=== PATIENT | female | born 1955 | race Asian ===

== ENCOUNTER → 2018-10-29 18:24 | Outpatient (CLI) | payer OTHER, SELFPAY | PROVIDERS: Family Provider Family Medicine; PCP Family Medicine; Visit Provider Physician Assistant | DX: L08.9 Local infection of the skin and subcutaneous tissue, unspecified (principal) | CPT/HCPCS: 87070; 87075; 87077; 87147; 87186; 87205 ==

== ENCOUNTER → 2019-02-21 15:03 | Outpatient (CLI) | payer OTHER, SELFPAY ==
--- NOTE | 2019-02-21 16:09 | DIET.PN ---
Dietary Note DIABETES Nutrition Initial Assessment:? ASSESS:?? Mrs. Maza is a 63 yom with long standing hx of type 2 diabetes. She reports receiving formal diabetes education at [facility] ~10 yrs ago. Since then she has had bariatric surgery (sleeve) and has lost 75 lbs. During that time she had good glucose control and was able to discontinue diabetes medication. She admits her diet and physical activity have not been as strict as she has adjusted to her sleeve. Her weight loss has slowed down and she is back on diabetes medication. She travels 3 days/week for work which makes meal planning a little more challenging. She states she feels hungry 30 min- 1 hr after eating on most days. She is a heavy snacker in the evening before and sometimes after dinner. LABS: Per pt report:? A1c: 6.9 ? MEDS:?? metformin 500 mg BID, Glipizide 10 mg ? DIET: Per 24-hour recall:? mostly low carb B: egg white, spinach, mozz cheese bites (frozen from [employer]) L: leftovers; pre-made salad D: protein/veg stir-crouch; salads Snk: nuts, cheese, chips ? Weight: 215 Height: 64 BMJI: 36.9 Goal weight: 180-190 ? Exercise:? NUTRITION DX 1. Altered Nutrition related labs related to impaired glucose metabolism, lack of previous exposure to accurate nutrition information as evidenced by pt report, dx of diabetes, previous diet high in refined carbohydrates.? INTERVENTION(s): 1. Discussed pathophysiology of diabetes. Reviewed A1c and its correlation to blood glucose numbers. Discussed recommended BG ranges. 2. Discussed impact of nutrition/diet on blood sugar control.? Discussed fed versus non-fed state.?? 3. Discussed the effect of carbohydrates/protein/fat on blood sugar control.? Stressed importance of consistent carbohydrate intake at each meal and provided instructions for recommended servings/portions of carbohydrates/protein per meal. Provided pt with educational material. 4. Reviewed carbohydrate counting and measuring carbohydrate content via serving sizes and reading nutrition labels.? Provided handouts.?? 5. Discussed the difference between simple versus complex carbohydrates and the effect of fiber on blood sugar control.? Discussed various methods to increase fiber content in diet. 6. Stressed importance of meal timing and not going >4-5 hours between meals. Encouraged adding protein to each meal to support glucose control. Provided list of protein foods. Discussed best protein options for heart health and to alleviate hunger. Patient agreeable. 7. Discussed easy/on the go snack options to avoid overeating and/or unhealthy snacking while traveling. 9. Discussed healthy weight loss through diet and exercise to increase lean muscle mass.? Pt agreeable to walking or start going to the gym daily. Goals: 1. Pt would like to lose 25-30 lbs (goal weight 180-190) through changes in diet including meal prepping and keeping healthy snacks available and increasing physical activity. 2. Pt would like to get off of one or all diabetes medication by maintaining glucose control through portion control and balanced meals. MONITOR/EVALUATE: Anticipate good compliance.? F/u to discuss BG, weight, and food log
== END ==
PROVIDERS: PCP Nurse Practitioner Family; Visit Provider Nurse Practitioner Family
DX: E11.9 Type 2 diabetes mellitus without complications (principal); Z79.84 Long term (current) use of oral hypoglycemic drugs; E66.9 Obesity, unspecified; Z71.3 Dietary counseling and surveillance; Z98.84 Bariatric surgery status; Z68.36 Body mass index [BMI] 36.0-36.9, adult
CPT/HCPCS: 97802

== ENCOUNTER → 2020-06-21 07:57 | Outpatient (CLI) | payer OTHER, SELFPAY ==
[2020-06-21] MEDS: COVID-19 VACC #1, MRNA(MOD) 100 MCG/0.5 ML VIAL IM (08:07)
== END ==
PROVIDERS: PCP Nurse Practitioner Family; Visit Provider Internal Medicine
DX: Z23 Encounter for immunization (principal)
CPT/HCPCS: 0011A; 91301

== ENCOUNTER → 2020-07-19 07:52 | Outpatient (CLI) | payer OTHER, SELFPAY ==
[2020-07-19] MEDS: COVID-19 VACC #2, MRNA(MOD) 100 MCG/0.5 ML VIAL IM (07:58)
== END ==
PROVIDERS: PCP Nurse Practitioner Family; Visit Provider Internal Medicine
DX: Z23 Encounter for immunization (principal)
CPT/HCPCS: 0012A; 91301

== ENCOUNTER → 2021-03-12 15:35 | Outpatient (CLI) | payer OTHER, SELFPAY ==
--- NOTE | 2021-03-13 15:58 | DIAB.INIT ---
Initial Diabetes Education Assessment Name: Ale Maza Date: 03/12/21 Time: 340-515p Dx: Type II Diabetes c retinopathy , left eye Provider: Kennedy Barriers reported: cameron Aguilera presents for initial diabetes visit with her , Jake. Jake cooks most meals in the house. Endorses FH of DM with father (insulin dep, dialysis, eye and LE complications) and sister (insulin dep). Reports PMH of gatric sleeve sx 10 years ago. Has lost 10# intentionally in the last 6 months. Reports UBW of 200-210#. Bariatric goal was 170#. Also reports GDM with last 25 years ago. Reports loving foods, rice and noodles-- some Gi discomfort with noodles--, but she has been avoiding carbs to reduce BG. Currently on low dose of Metformin (500mg) + 15mg glipizide daily. States she was unable to tolerate higher dose of Metformin due to nausea. Taking Metformin XR. Could consider taking before bed with increased dose, if provider agrees. Maribell is also not sure if she was taking with food. Ale works from home.Getting new HgA1c this week. Has provider appt in 10 days. Physical Activity: Was attending gym but quit this past fall due to people not wearing masks and change in weather. States she would like to return. Self-Monitoring Blood Glucose: Using freestyle michael and loves it. Fear of needles reported. Per ADA guidelines, all FBG above goal. Pre lunch 3/3 elevated. Post lunch 2/4 elevated. one post dinner reported and in range. 3/6 elevated HS readings. Date Pre Post Pre Post Pre Post HS 03/06 169 243 135 128 12/3 133 134 209 12/4 164 164 198 165 12/5 151 140 145 12/6 161 149 /7 145 185 03/12 175 159 156 Diabetes Medications: 500 mg Metformin XR 15 mg glipizide daily Past Medical History: Per referral: childhood asthma, T2DM, tachycardia, heart murmur, afib, HDL, HTN, aortic sclerosis, osteoarthritis, JOHANNA c Cpap, colon polyp. Pertinent Labs: Per referral 08/2020 hgA1c: 7.4% H cholesterol 159 LDL 60 Intervention: This participant was very receptive. Provided appropriate educational handouts. Discussed the following topics: Completed intake assessment. Discussed barriers to care. Pathophysiology of type 2 diabetes HgA1c, its correlation to blood glucose numbers, and rationale for goal Types of medication. Recs on Metformin to reduce GI upset. self-monitoring, BG ADA goals (FB-130 and 1-2 hr pc: <180), how often, and when to check. Impact of cindy phenomenon on FBG. Plate Method, impact of macronutrients on blood sugar, meal timing, carbohydrate counting, pairing macronutrients and spreading out carbohydrates for better blood glucose management General recommended servings for carbohydrates at meals and snacks and meal planning Role of physical activity and following provider guidelines for safety Created SMART goals for patient self-care and success. Goals: Restart gym next week safely- new track food and blood sugar- new Ale would like to try tracking food intake and BG to see correlations. States she would also like to retry Metformin increased dose after discussing with provider. May benefit from taking the higher dose prior to bed to avoid nausea. Also encouraged taking with food. Follow-up: JOSE SALDANA follow-up in 2-3 weeks Samia Sheffield RDN, [facility] Certified Diabetes Care and Steerer P: [phone] Thank you for this referral
== END ==
PROVIDERS: PCP Nurse Practitioner Family; Referring Provider Nurse Practitioner Family; Visit Provider Nurse Practitioner Family
DX: E11.319 Type 2 diabetes mellitus with unspecified diabetic retinopathy without macular edema (principal); Z79.84 Long term (current) use of oral hypoglycemic drugs; Z71.3 Dietary counseling and surveillance
CPT/HCPCS: G0108

== ENCOUNTER → 2021-04-08 15:11 | Outpatient (CLI) | payer OTHER, SELFPAY ==
--- NOTE | 2021-04-08 16:19 | DIAB.FU ---
Follow-up Diabetes Education Assessment Name: Ale Maza Date: 04/08/21 Time: 335-405p Dx: Type II Diabetes Ale presents for Dm ed follow-up with her , Jake. States things overall are going very well. She is taking the higher Metformin XR dose before bed without SE. BG are much improved. States she is feeling satisfied with her meals. Jake does the cooking and plating for her meals. States he has been mindful of carb portions and reading labels. Saw provider and reports HgA1c of 7.7%, up from last visit but prior to increase in Metformin. Plans to see provider for new labs and DM f/u in three months. With current Bg it is anticipated that her HgA1c will hopefully trend <7%. Endorses being up to date on Dm care: dental and private eye, flu shot Does not check feet daily Physical Activity: Has not returned to the gym. She and Jake worry about the new covid variant and lack of masking at the gym. they have a rower at home and prior to the snowy weather, were trying to walk 30 min 3 x per week. Self-Monitoring Blood Glucose: Much improved BG mgmnt. FBG all in range. A few pc elevations related to higher carb intake. 1/6 elevated post breakfast, 1/5 elevated post dinner, 1/6 elevated HS reading. No hypo events. Date Pre Post Pre Post Pre Post HS 04/01 04/02 92 140 87 139 114 04/03 108 125 105 133 102 104 04/04 109 97 109 231 125 04/05 87 201 153 98 178 04/06 132 119 85 127 93 04/07 93 151 143 128 141 04/08 127 76 Diabetes Medications: 1000 mg Metformin XR 15 mg glipizide daily Pertinent Labs: Per referral 08/2020 hgA1c: 7.4% H cholesterol 159 LDL 60 Past Medical History: Per referral: childhood asthma, T2DM, tachycardia, heart murmur, afib, HDL, HTN, aortic sclerosis, osteoarthritis, JOHANNA c Cpap, colon polyp. Intervention: This participant was very receptive. Provided appropriate educational handouts. Discussed the following topics: Recent blood sugar results and trends Medication management Review of general nutrition recommendations and current intake Physical activity plan and impact on blood sugars, barriers to activity Prevention of complications: foot care (how and when to check feet), dental and eye appointments Created SMART goals for patient self-care and success. Goals: Restart gym next week safely- d/c track food and blood sugar- met Try rower safely- new restart walking when weather is safe x 30 min for 3-4 days per week- new Follow-up: JOSE SALDANA follow-up prn. Ale would like to call for follow-up as needed. Given improved BG mgmnt this seems reasonable. Encouraged her to call with any questions, concerns, or follow-up needs. She agreed. Samia Sheffield RDN, [facility] Certified Diabetes Care and Ginner Helper P: [phone] Thank you for this referral
== END ==
PROVIDERS: PCP Nurse Practitioner Family; Referring Provider Nurse Practitioner Family; Visit Provider Nurse Practitioner Family
DX: E11.9 Type 2 diabetes mellitus without complications (principal)
CPT/HCPCS: G0108

== ENCOUNTER 2022-08-21 09:19 | Emergency (ER) | payer MEDICARE, SELFPAY ==
[2022-08-21 09:39] VITALS: BP 130/80; PULSE 70; RESP 14; TEMP 36.2; O2SAT 99; BMI 30.9
--- NOTE | 2022-08-21 09:46 | DI.CT.S_ITS ---
PROCEDURE: CT CERVICAL SPINE WO CON INDICATIONS: trauma/fall on eliquis TECHNIQUE: Noncontrast 3 mm thick sections acquired from the skull base to the T4 level. Sagittal and coronal reformats were then constructed. For radiation dose reduction, the following was used: automated exposure control, adjustment of mA and/or kV according to patient size. COMPARISON: None. FINDINGS: Image quality: Excellent. Bones: No fractures or dislocations. Visualized superior ribs are intact. Multilevel facet arthropathy, prominent on the left C4-C5 and C5-C6. Soft tissues: Prevertebral soft tissues are normal in thickness. No paravertebral hematomas. No apical pneumothoraces. IMPRESSION: No evidence acute cervical fracture or dislocation. Dictated by: Ha Miller M.D. on 08/21/2022 at 9:59 Approved by: Ha Miller M.D. on 08/21/2022 at 10:02
--- NOTE | 2022-08-21 09:46 | DI.RAD.S_ITS ---
PROCEDURE: XR SHOULDER LT MIN 2V INDICATIONS: trauma/fall on eliquis TECHNIQUE: 3 views of the shoulder were acquired. COMPARISON: None. FINDINGS: Bones: No fractures or dislocations. No suspicious bony lesions. Mild acromioclavicular and glenohumeral joint degeneration. Visualized ribs appear intact. Soft tissues: Slight inferior subluxation of the humeral head may be caused by glenohumeral joint effusion. No suspicious soft tissue calcifications. IMPRESSION: 1. No acute osseous abnormalities. If clinical symptoms persist consider advanced imaging such as CT or MRI for further evaluation. 2. Mild degenerative joint disease. 3. Question glenohumeral joint effusion. Dictated by: Dave Bonilla M.D. on 08/21/2022 at 10:00 Approved by: Dave Bonilla M.D. on 08/21/2022 at 10:02
--- NOTE | 2022-08-21 09:46 | DI.CT.S_ITS ---
PROCEDURE: CT HEAD/BRAIN WO CON INDICATIONS: trauma/fall on eliquis TECHNIQUE: Noncontrast 4.5 mm thick angled axial sections acquired from the foramen magnum to the vertex, with coronal and sagittal reformats. For radiation dose reduction, the following was used: automated exposure control, adjustment of mA and/or kV according to patient size. COMPARISON: None. FINDINGS: Image quality: Excellent. CSF spaces: Basal cisterns are patent. No extra-axial fluid collections. The ventricles are symmetric in size and shape. Brain: No intracranial bleeds or masses. There is cerebral volume loss for age, with resultant ventricular and sulcal prominence. There are periventricular and deep white matter chronic small vessel ischemic changes. There is intracranial internal carotid artery atherosclerosis. Skull and face: Calvarium and visualized facial bones appear intact, without suspicious lesions. Mild left frontal temporal scalp contusion. Sinuses: Visualized sinuses and mastoids are clear. IMPRESSION: 1. No acute intracranial abnormalities. 2. Cerebral volume loss and chronic microvascular ischemic changes. Dictated by: Dave Bonilla M.D. on 08/21/2022 at 9:59 Approved by: Dave Bonilla M.D. on 08/21/2022 at 10:00
[2022-08-21 12:42] VITALS: BP 112/68; PULSE 58; O2SAT 99
--- NOTE | 2022-08-21 13:05 | ED_ITS ---
HPI - Fall <Brianna Valente PA-C - Last Filed: 08/21/22 14:04> General Chief Complaint: Trauma Stated Complaint: sent by [facility] fell T-4 hit head/headaches/Vision Time Seen by Provider: 08/21/22 13:05 Source: patient Mode of arrival: Ambulatory History of Present Illness HPI Narrative: Is a 67-year-old woman who presents with concern for headaches, light sensitivity and some blurred vision this morning. Patient had a fall about 3 days ago she [place] the [place] and [place] onto her left side hitting her left forehead/confucianist in her left shoulder upper arm when she landed on some beach locks. Patient states that she is been having light sensitivity and headaches since that time she does not typically have headaches but this morning when she woke up she felt like she had some blurry vision. She states she is also been having some muscle aching and tightness in her left shoulder and left upper back. She describes it as generalized blurriness that gradually resolved over the next few hours she says it is pretty much gone at way at this point. She initially went to the walk-in clinic but was sent to the emergency department for further evaluation. She denies any nausea, vomiting, neck pain, numbness or tingling in extremities, coordination difficulty or any other symptoms. Related Data Home Medications Medication Instructions Recorded Confirmed apixaban 5 mg tablet (Eliquis) 5 mg PO BID 10/29/18 10/29/18 atorvastatin 40 mg tablet 40 mg PO DAILY 10/29/18 10/29/18 chlorthalidone 25 mg tablet 25 mg PO DAILY 10/29/18 10/29/18 diltiazem HCl 180 mg capsule,24 180 mg PO DAILY 10/29/18 10/29/18 hr,extended release fluoxetine 20 mg capsule 40 mg PO DAILY 10/29/18 10/29/18 glipizide 10 mg tablet 10 mg PO BID 10/29/18 10/29/18 losartan 100 mg tablet 100 mg PO DAILY 10/29/18 10/29/18 metformin 500 mg tablet 500 mg PO DAILY 10/29/18 10/29/18 omeprazole 20 mg capsule,delayed 20 mg PO BID 10/29/18 10/29/18 release potassium chloride 10 mEq 20 meq PO DAILY 10/29/18 10/29/18 capsule,extended release Allergies Allergy/AdvReac Type Severity Reaction Status Date / Time cefaclor [From CECLOR] Allergy Severe hives Verified 08/21/22 09:46 MITCH Inhibitors Allergy Mild cough Verified 08/21/22 09:46 [MITCH INHIBITORS] Penicillins [PENICILLINS] Allergy Mild coughing Verified 08/21/22 09:46 zephrex Allergy Mild coughing Uncoded 10/29/18 17:41 Review of Systems <Brianna Valente PA-C - Last Filed: 08/21/22 14:04> Review of Systems Narrative: See HPI Patient History <Brianna Valente PA-C - Last Filed: 08/21/22 14:04> Social History Smoking Status: Never smoker Smoking Status: Never smoker alcohol intake frequency: 0-2 drinks per day Substance Use Type: does not use Exam <Brianna Valente PA-C - Last Filed: 08/21/22 14:04> Narrative Exam Narrative: GENERAL: [67] year old patient appears stated age. Well-developed patient, in mild distress. HEAD: There is purplish yellow bruising present on the patient's left lateral forehead anterior to the temporal, extending down to the left zygoma and with some bruising and slight swelling about the left eye at the lateral aspect. Otherwise Atraumatic. Normocephalic. EYES: EOMs intact, visual hand intact. Pupils equal round and reactive. Extraocular motions intact. No scleral icterus. No injection or drainage. ENT: Nose without bleeding, purulent drainage. Airway patent. NECK: Trachea midline. Non tender CARDIOVASCULAR: Regular rate and rhythm without murmurs, gallops, or rubs. RESPIRATORY: Clear to auscultation. Breath sounds equal bilaterally. No wheezes, rales, or rhonchi. GASTROINTESTINAL: Abdomen soft, non-tender, nondistended. EXTREMITIES: There is a large hematoma the patient's left upper humerus, patient has full active range of motion and intact strength in the affected left extremity, with strong equal radial pulses and cap refill less than 2 seconds.. No edema or joint tenderness. BACK: There is no midline spinous process tenderness deformity or step-off noted. Left trapezius muscle is tender and tight, left paraspinal thoracic muscles and cervical paraspinal muscles are tender and tight. Nontender without deformity or crepitance. No flank tenderness. NEURO: AOx3. Coordination intact SKIN: No rash or erythema of visible areas Initial Vital Signs Initial Vital Signs: Vital Signs Temperature 97.1 F L 08/21/22 09:39 Pulse Rate 70 08/21/22 09:39 Respiratory Rate 14 08/21/22 09:39 Blood Pressure 130/80 08/21/22 09:39 Pulse Oximetry 99 08/21/22 09:39 Oxygen Delivery Method Room Air 08/21/22 09:39 <Rashida Simon DO - Last Filed: 08/21/22 19:10> Initial Vital Signs Initial Vital Signs: Vital Signs Temperature 97.1 F L 08/21/22 09:39 Pulse Rate 70 08/21/22 09:39 Respiratory Rate 14 08/21/22 09:39 Blood Pressure 130/80 08/21/22 09:39 Pulse Oximetry 99 08/21/22 09:39 Oxygen Delivery Method Room Air 08/21/22 09:39 Course <BLAINE Mcdermott Last Filed: 08/21/22 14:04> Orders Ordered: ED Orders 08/21/22 09:46 CT cervical spine wo con Stat CT head/brain wo con Stat XR shoulder LT min 2V Stat Vital Signs Vital signs: Vital Signs - 8 hr 08/21/22 12:42 08/21/22 14:15 Pulse Rate 58 L 63 Respiratory Rate 16 Blood Pressure 112/68 105/60 Pulse Oximetry 99 100 Oxygen Delivery Method Room Air Room Air <DO Morgan Potter Last Filed: 08/21/22 19:10> Orders Ordered: ED Orders 08/21/22 09:46 CT cervical spine wo con Stat CT head/brain wo con Stat XR shoulder LT min 2V Stat Vital Signs Vital signs: Vital Signs - 8 hr 08/21/22 12:42 08/21/22 14:15 Pulse Rate 58 L 63 Respiratory Rate 16 Blood Pressure 112/68 105/60 Pulse Oximetry 99 100 Oxygen Delivery Method Room Air Room Air MDM - Fall <BLAINE Mcdermott Last Filed: 08/21/22 14:04> Differential Diagnosis Differential diagnosis: Likely concussion without loss of consciousness and other (Sprain, strain, hematoma, muscle spasm) Medical Records Attestation: I reviewed the patient's medical records. Imaging Data CT - cervical spine: My Impression: I agree with Radiology interpretation Radiologist's Impression: [address] [address] [address] Scan Report Signed Patient: Ale Maaz MR#: [id number] : 1955 Acct:[id number] Age/Sex: 67 / F Date of Service: 08/21/22 Loc: ED Accession Number: [id number] ?? Procedure: CT cervical spine wo con Ordering Provider: Rashida Simon D.O. PROCEDURE:? CT CERVICAL SPINE WO CON ? INDICATIONS:? trauma/fall on eliquis ? TECHNIQUE:? Noncontrast 3 mm thick sections acquired from the skull base to the T4 level.? Sagittal and coronal reformats were then constructed.? For radiation dose reduction, the following was used:? automated exposure control, adjustment of mA and/or kV according to patient size.? ? COMPARISON:? None. ? FINDINGS:? Image quality:? Excellent.? ? Bones:? No fractures or dislocations.? Visualized superior ribs are intact.? Multilevel facet arthropathy, prominent on the left C4-C5 and C5-C6.? ? Soft tissues:? Prevertebral soft tissues are normal in thickness.? No paravertebral hematomas.? No apical pneumothoraces.? ? ? IMPRESSION:? No evidence acute cervical fracture or dislocation. ? Dictated by: Ha Miller M.D. on 08/21/2022 at 9:59 ? ? Approved by: Ha Miller M.D. on 08/21/2022 at 10:02?? CT scan - head: My Impression: Agree with Radiology interpretation Radiologist's Impression: [address] [address] [address] Scan Report Signed Patient: Ale Maza MR#: [id number] : 1955 Acct:[id number] Age/Sex: 67 / F Date of Service: 08/21/22 Loc: ED Accession Number: [id number] ?? Procedure: CT head/brain wo con Ordering Provider: Rashida Simon D.O. PROCEDURE:? CT HEAD/BRAIN WO CON ? INDICATIONS:? trauma/fall on eliquis ? TECHNIQUE:? Noncontrast 4.5 mm thick angled axial sections acquired from the foramen magnum to the vertex, with coronal and sagittal reformats.? For radiation dose reduction, the following was used:? automated exposure control, adjustment of mA and/or kV according to patient size.? ? COMPARISON:? None. ? FINDINGS:? Image quality:? Excellent.? ? CSF spaces:? Basal cisterns are patent.? No extra-axial fluid collections.? The ventricles are symmetric in size and shape.? ? Brain:? No intracranial bleeds or masses.? There is cerebral volume loss for age, with resultant ventricular and sulcal prominence.? There are periventricular and deep white matter chronic small vessel ischemic changes.? There is intracranial internal carotid artery atherosclerosis.? ? Skull and face:? Calvarium and visualized facial bones appear intact, without suspicious lesions.? Mild left frontal temporal scalp contusion. ? Sinuses:? Visualized sinuses and mastoids are clear.? ? IMPRESSION:? ? 1. No acute intracranial abnormalities. ? 2. Cerebral volume loss and chronic microvascular ischemic changes. ? ? ? Dictated by: Dave Bonilla M.D. on 08/21/2022 at 9:59 ? ? Approved by: Dave Bonilla M.D. on 08/21/2022 at 10:00?? Extremity x-ray #1: My Impression: Agree with Radiology interpretation Radiologist's Impression: [place] [address] XRay Report Signed Patient: Ale Maza MR#: [id number] : 1955 Acct:[id number] Age/Sex: 67 / F Date of Service: 08/21/22 Loc: ED Accession Number: [id number] ?? Procedure: XR shoulder LT min 2V Ordering Provider: Rashida Simon D.O. PROCEDURE:? XR SHOULDER LT MIN 2V ? INDICATIONS:? trauma/fall on eliquis ? TECHNIQUE:? 3 views of the shoulder were acquired.? ? COMPARISON:? None. ? FINDINGS:? ? Bones:? No fractures or dislocations.? No suspicious bony lesions.? Mild acromioclavicular and glenohumeral joint degeneration.? Visualized ribs appear intact.? ? Soft tissues:? Slight inferior subluxation of the humeral head may be caused by glenohumeral joint effusion.? No suspicious soft tissue calcifications.? ? IMPRESSION:? ? 1. No acute osseous abnormalities.? If clinical symptoms persist consider advanced imaging such as CT or MRI for further evaluation.? 2. Mild degenerative joint disease.? 3. Question glenohumeral joint effusion. ? ? Dictated by: Dave Bonilla M.D. on 08/21/2022 at 10:00 ? ? Approved by: Dave Bonilla M.D. on 08/21/2022 at 10:02?? Treatment and disposition Shared decision making:: Shared decision-making was used and determine the patient's plan of care in the emergency department and plan for outpatient follow-up MDM Narrative Medical decision making narrative: This is a well-appearing 67-year-old woman who presents with concern for muscle tightness, left shoulder pain and bruising, light sensitivity, and some blurred vision that began this morning. Patient had a fall 3 days ago hitting left side of her head and left shoulder on beach logs. She has negative CT neck, non-con head today as well as negative left shoulder x-ray, she has good active full range of motion of her arm and no midline spinous process tenderness, suspect that her symptoms are consistent with concussion, her neuro exam visual exam was intact. She has had improvement of her blurred vision symptoms. Suspect that she is dealing with concussion. She had no loss of consciousness at the time of her injury, as this is 3 days later and she has negative imaging low suspicion that she is developing a bleed, do counseled the patient regarding monitoring for new or worsening symptoms and advised to return to the ER if he is present. Patient and her are in agreement and comfortable with the plan. Patient will take Tylenol for muscle pain and tightness, try ice and heat, as well as massage. Return precautions provided, follow-up plan discussed, all questions answered. Discharge Plan Departure Patient Disposition: Home Clinical Impression: Concussion without loss of consciousness, Hematoma and contusion Instructions: DI for Concussion Activity Restrictions/Additional Instructions: *You have been diagnosed with concussion without loss of consciousness, hematoma, muscle strain *What to do: *Please continue to take your regular medications as directed. [ ] New medication prescriptions sent to your pharmacy: [ ] [ ] New medication written as a paper prescription [* ] No new medications given *Please follow up with your primary care provider in 2-3 days, call for an appointment. Let them know you were seen in the Emergency Department and that we ask that you be seen in follow up. We will electronically transmit a record of today's note if your PCP is in our system. Please see the attached instructions regarding concussion, monitor for new or worsening symptoms over the next few days to to 1-2 weeks, all of your imaging today looked good, there is no evidence of injury to your shoulder spine and there is no evidence of bleeding in her brain. I suspect her symptoms are consistent with a concussion, these can last for a few weeks before resolution *If you do not have a primary care provider please contact the [facility] Resource line at [phone]. They will ask some questions about your medical history and help get you set up with a doctor in the community. *Return to Emergency Department if you should have any new, worsening or concerning symptoms, such as [fever greater than 101 F, shaking chills, worsening pain, persistent vomiting or other bothersome symptoms] Prescriptions: No Action Eliquis 5 mg tablet 5 mg PO BID losartan 100 mg tablet 100 mg PO DAILY omeprazole 20 mg capsule,delayed release(DR/EC) 20 mg PO BID atorvastatin 40 mg tablet 40 mg PO DAILY metformin 500 mg tablet 500 mg PO DAILY glipizide 10 mg tablet 10 mg PO BID fluoxetine 20 mg capsule 40 mg PO DAILY chlorthalidone 25 mg tablet 25 mg PO DAILY diltiazem HCl 180 mg capsule,extended release 24 hr 180 mg PO DAILY potassium chloride 10 mEq capsule, extended release 20 meq PO DAILY Referrals: Miscellaneous,Doctor, [Primary Care Provider] - Stand Alone Forms: Patient Portal/API <Rashida Simon DO - Last Filed: 08/21/22 19:10> Cosign ED Attending Cosignature Attestation: I was immediately available in the department for consultation. Documentation has been reviewed.
[2022-08-21 14:15] VITALS: BP 105/60; PULSE 63; RESP 16; O2SAT 100
== END 2022-08-21 14:17 | disposition home or self-care (01) ==
PROVIDERS: Emergency Provider Student in an Organized Health Care Education/Training Program
DX: S06.0X0A Concussion without loss of consciousness, initial encounter (principal); M54.89 Other dorsalgia; W18.30XA Fall on same level, unspecified, initial encounter
CPT/HCPCS: 70450; 72125; 73030; 99284

== ENCOUNTER → 2022-10-02 10:21 | Outpatient (CLI) | payer MEDICARE, SELFPAY ==
[2022-10-02 11:09] LABS: Hemoglobin 12.9 g/dL (12.0-16.0); Mean Corpuscular HGB Conc 33.8 % (30-36); Mean Corpuscular Hemoglobin 30.1 PG (26-34); Platelet Count 242 X10^3/uL (150-400); Red Blood Cell Count 4.27 X10^6/uL (4.0-5.2); Red Cell Distribution Width 12.8 % (11.6-14.8); White Blood Cell Count 6.4 X10^3/uL (4.5-11.0)
[2022-10-02 11:24] LABS: Alanine Aminotransferase 53 IU/L (<35); Albumin 4.5 g/dL (3.5-5.0); Albumin Globulin Ratio 1.5 (1.0-2.8); Alkaline Phosphatase 61 U/L (38-126); Aspartate Aminotransferase 52 IU/L (14-36); BUN Creatinine Ratio 33.8 (6-22); Bilirubin Total 0.8 mg/dL (0.2-1.3); Blood Urea Nitrogen 25 mg/dL (7-17); Calcium 9.7 mg/dL (8.4-10.2); Carbon Dioxide 27 mmol/L (22-32); Chloride 101 mmol/L (98-107); Cholesterol 125 mg/dL (140-199); Estimated Glomerular Filt Rate > 60 mL/min (>60); Globulin 3.1 g/dL (1.7-4.1); Glucose 104 mg/dL (80-110); HDL Cholesterol 74 mg/dL (40-60); HEMOLYSIS 25 (0-50); LDL Cholesterol Calculated 29 mg/dL (<100); Potassium 4.2 mmol/L (3.4-5.1); Sodium 137 mmol/L (137-145); Total Protein 7.6 g/dL (6.3-8.2); Triglycerides 110 mg/dL (35-150)
[2022-10-02 11:52] LABS: Creatinine Urine Random 192.4 mg/dL
[2022-10-02 11:56] LABS: Microalbumi Creatinin Ratio Ur 4.6 ug/mg CR (<30); Microalbumin Urine Random 0.9 mg/dL (0-1.6)
[2022-10-02 12:08] LABS: TSH w/ Reflex to FT4 1.21 uIU/mL (0.47-4.68)
[2022-10-03 08:29] LABS: Labcorp Hemoglobin (Hb) A1c 6.2 % (4.8-5.6)
== END ==
PROVIDERS: PCP Internal Medicine; Referring Provider Internal Medicine; Visit Provider Internal Medicine
DX: E11.69 Type 2 diabetes mellitus with other specified complication (principal); E78.2 Mixed hyperlipidemia; E78.5 Hyperlipidemia, unspecified; I10 Essential (primary) hypertension; I48.0 Paroxysmal atrial fibrillation
CPT/HCPCS: 36415; 80053; 80061; 82043; 82570; 83036; 84443; 85027

== ENCOUNTER → 2022-10-21 09:19 | Outpatient (CLI) | payer MEDICARE, SELFPAY ==
--- NOTE | 2022-10-21 09:20 | DI.RAD.S_ITS ---
PROCEDURE: XR KNEE RT 3V INDICATIONS: Right knee pain TECHNIQUE: Three views of the knee were acquired. COMPARISON: None. FINDINGS: Bones: No fractures or dislocations. No suspicious bony lesions. Moderate patellofemoral compartment joint space loss and spurring. Mild medial and lateral compartment spur formation. Soft tissues: Small joint effusion. No suspicious soft tissue calcifications. IMPRESSION: 1. Small joint effusion may indicate internal derangement. 2. 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 Dictated by: Ines Bazzi M.D. on 10/21/2022 at 20:49 Approved by: Ines Bazzi M.D. on 10/21/2022 at 20:50
== END ==
PROVIDERS: PCP Internal Medicine; Referring Provider Nurse Practitioner Family; Visit Provider Nurse Practitioner Family
DX: M25.561 Pain in right knee (principal); M25.461 Effusion, right knee
CPT/HCPCS: 73562

== ENCOUNTER 2023-02-03 15:46 | Emergency (ER) | payer MEDICARE, SELFPAY ==
[2023-02-03] VITALS (26 sets, daily range): BP systolic 104–131; BP diastolic 62–89; PULSE 68–138; RESP 7–31; TEMP 36.8; O2SAT 95–100; BMI 29.5
--- NOTE | 2023-02-03 16:35 | DI.RAD.S_ITS ---
PROCEDURE: XR CHEST 1V INDICATIONS: dyspnea TECHNIQUE: One view of the chest was acquired. COMPARISON: [facility], , CHEST 1 VIEW, 08/12/2013, 12:46. FINDINGS: Surgical changes and devices: None. Lungs and pleura: Lungs are clear. No pleural effusions or pneumothorax. Mediastinum: Mediastinal contours appear normal. Heart size is normal. Bones and chest wall: No suspicious bony lesions. Overlying soft tissues appear unremarkable. IMPRESSION: Portable chest within normal limits for age. Dictated by: Kelvin Lima M.D. on 02/03/2023 at 17:29 Approved by: Kelvin Lima M.D. on 02/03/2023 at 17:29
[2023-02-03 16:55] LABS: INR 1.2 (0.9-1.3); Prothrombin Time 14.1 SECONDS (10.1-12.7)
[2023-02-03 16:58] LABS: Add Manual Diff / Slide Review NO; Basophils Absolute Auto 100 /uL (0-100); Basophils Percent Auto 0.9 % (0-2); Eosinophils Absolute Auto 200 /uL (0-450); Eosinophils Percent Auto 3.5 % (2-4); Hematocrit 37.4 % (36-46); Hemoglobin 12.7 g/dL (12.0-16.0); Lymphocytes Absolute Auto 2400 /uL (1100-4500); Lymphocytes Percent Auto 35.6 % (25-40); Mean Corpuscular HGB Conc 33.9 % (30-36); Mean Corpuscular Hemoglobin 29.3 PG (26-34); Mean Corpuscular Volume 86.4 fL (80-100); Monocytes Absolute Auto 500 /uL (0-900); Monocytes Percent Auto 7.8 % (3-14); Neutrophils Absolute Auto 3500 /uL (1500-7000); Neutrophils Percent Auto 52.2 % (50-75); PTT Partial Thromboplastin Tim 42 SECONDS (26-36); Platelet Count 272 X10^3/uL (150-400); Red Blood Cell Count 4.34 X10^6/uL (4.0-5.2); Red Cell Distribution Width 13.1 % (11.6-14.8); White Blood Cell Count 6.7 X10^3/uL (4.5-11.0)
[2023-02-03 16:59] LABS: Alanine Aminotransferase 48 IU/L (<35); Albumin 4.1 g/dL (3.5-5.0); Albumin Globulin Ratio 1.5 (1.0-2.8); Alkaline Phosphatase 64 U/L (38-126); Aspartate Aminotransferase 39 IU/L (14-36); BUN Creatinine Ratio 27.5 (6-22); Bilirubin Total 0.5 mg/dL (0.2-1.3); Blood Urea Nitrogen 19 mg/dL (7-17); Calcium 9.5 mg/dL (8.4-10.2); Carbon Dioxide 22 mmol/L (22-32); Chloride 107 mmol/L (98-107); Creatine Kinase 68 U/L (30-135); Estimated Glomerular Filt Rate > 60 mL/min (>60); Globulin 2.7 g/dL (1.7-4.1); Glucose 120 mg/dL (80-110); HEMOLYSIS 25 (0-50); Magnesium 1.9 mg/dL (1.6-2.3); Potassium 3.7 mmol/L (3.4-5.1); Sodium 137 mmol/L (137-145); Total Protein 6.8 g/dL (6.3-8.2)
--- NOTE | 2023-02-03 16:59 | ED.ARRPALP ---
HPI - Arrhythmia/Palpitations General Chief Complaint: Arrhythmia/Palpitations Stated Complaint: AFib, Low BP Time Seen by Provider: 02/03/23 15:57 Source: patient Mode of arrival: Wheelchair History of Present Illness HPI narrative: 67yoF with PMH paroxysmal Atrial fibrillation on Eliquis and diltiazem, history of insulin-dependent diabetes presents by private vehicle from home for atrial fibrillation. Patient states that she was bringing groceries when all of a sudden she felt her heart rate laura rocket. It did not go down and she began to notice a tightening sensation in her chest and so she decided to present for evaluation. She is not followed with Cardiology in 1 year, she reports compliance with the diltiazem and her Eliquis. Related Data Home Medications Medication Instructions Recorded Confirmed cetirizine 10 mg tablet (Aller-Hilda) 10 mg PO DAILY PRN 10/02/22 11/09/22 coenzyme Q10 200 mg capsule (Co 200 mg PO DAILY 10/02/22 11/09/22 Q-10) flash glucose sensor (Appsfireyle #1 ea 10/02/22 11/09/22 Audie 14 Day Sensor kit) multivitamin 1 tab PO DAILY 10/02/22 11/09/22 potassium chloride 10 mEq 10 meq PO DAILY 11/09/22 11/09/22 capsule,extended release Previous Rx's Medication Instructions Recorded apixaban 5 mg tablet (Eliquis) 5 mg PO BID #180 tabs 10/02/22 clonidine HCl 0.1 mg tablet 0.1 mg PO BEDTIME #90 tabs 10/02/22 diltiazem HCl 180 mg capsule,24 180 mg PO DAILY #90 caps 10/02/22 hr,extended release famotidine 40 mg tablet 40 mg PO BID #180 tabs 10/02/22 fluoxetine 20 mg capsule 40 mg (2 x 20 mg) PO DAILY #180 10/02/22 caps losartan 100 mg tablet 100 mg PO DAILY #90 tabs 10/02/22 metformin 500 mg tablet,extended 1,000 mg (2 x 500 mg) PO QPM #180 10/02/22 release 24 hr tabs rosuvastatin 40 mg tablet 40 mg PO DAILY #90 tabs 10/02/22 semaglutide 1 mg/dose (4 mg/3 mL) 1 mg (0.75 mL) SUBCUT QWEEK #9 mL 10/02/22 subcutaneous pen injector (Ozempic) diltiazem HCl 240 mg 240 mg PO DAILY #30 caps 02/03/23 capsule,extended release 24 hr Allergies Allergy/AdvReac Type Severity Reaction Status Date / Time cefaclor [From CECLOR] Allergy Severe hives Verified 11/09/22 09:38 MITCH Inhibitors Allergy Mild cough Verified 11/09/22 09:38 [MITCH INHIBITORS] Penicillins [PENICILLINS] Allergy Mild coughing Verified 11/09/22 09:38 zephrex Allergy Mild coughing Uncoded 11/09/22 09:38 Review of Systems Review of Systems Narrative: CONSTITUTIONAL- Denies: fever, chills, fatigue HEENT- Denies: sore throat, nosebleed, vision changes RESPIRATORY- Denies: shortness of breath, cough, wheezing CARDIAC-reports: Chest tightness Denies: chest pain, edema, orthopnea GI- Denies: abdominal pain, nausea, vomiting, constipation, diarrhea - Denies: frequency, dysuria, hematuria, flank pain MSK- Denies: extremity pain, extremity swelling, joint pain, joint swelling SKIN- Denies: rash, itching, burn, swelling NEUROLOGICAL- Denies: headache, numbness, weakness, dizziness PSYCHIATRIC- Denies: anxiety, depression, suicidal ideation, homicidal ideation Patient History Medical History ADHD Allergic rhinitis Carpal tunnel syndrome Chronic anticoagulation Depression, major, 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 Essential hypertension Fibroids Generalized anxiety disorder GERD without esophagitis Hearing loss Heavy menstrual period History of colonic polyps Infertility Insomnia Irregular menstrual cycle Mixed hyperlipidemia Obstructive sleep apnea Paroxysmal atrial fibrillation Surgical History Anesthesia H/O gastric sleeve History of Achilles tendon repair History of mandibular surgery Family History Father Diabetes mellitus Hypertension Sister Diabetes mellitus 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 History details: , 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, 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 Smoking Status: Never smoker Smoking Status: Never smoker alcohol intake frequency: 0-2 drinks per day Substance Use Type: does not use Exam Initial Vital Signs Initial Vital Signs: Vital Signs Temperature 98.3 F 02/03/23 15:51 Pulse Rate 138 H 02/03/23 15:51 Respiratory Rate 18 02/03/23 15:51 Blood Pressure 104/62 02/03/23 15:51 Pulse Oximetry 100 02/03/23 15:51 Oxygen Delivery Method Room Air 02/03/23 15:51 Const: Awake, alert, no acute distress, nontoxic appearing Eyes: PERRL, EOMI, conjunctiva normal ENT: Atraumatic, dentition normal, mucous membranes moist Cardiac: Tachycardia, irregularly irregular RESP: unlabored, clear bilaterally, no wheezing GI: Atraumatic, soft, nontender, nondistended, no rebound, no guarding MSK: Atraumatic, full range of motion, pulses equal Skin: Warm, Dry, intact, no rashes Neuro: AO x3, CN II-XII grossly intact, moves all extremities Psych: affect normal, mood normal, not suicidal, not homicidal Procedures Cardioversion Time of Cardioversion: 17:53 Consent Signed: Yes Stability: Stable Number of attempts (shocks): 1 Joules used: 150 Cardiac rhythm post-cardioversion: sinus rhythm, 70bpm Procedural Sedation Time of procedure: 17:51 Consent signed: Yes Time out performed: Yes Indication: cardioversion ASA Class: II Mallampati Airway Classification: Class II Time of Last PO Intake: 11:00 Preparation: cardiac cath technician applied, pulse oximeter, capnometry used, supplemental O2 applied, suction/airway equipment at bedside and IV secured IV Propofol dose (mg): 70 Intraservice time/total sedation time (min): 5 ED Sedation Level: Moderate (Concious) Patient Tolerated Procedure: Well and No complications Complications: none Course Orders Ordered: ED Orders 02/03/23 16:02 EKG-12 Lead Routine 02/03/23 16:35 Chest [XR chest 1V] Stat 02/03/23 16:40 CBC Auto Diff [Complete Blood Count AUTO DIFF] Stat CMP [Comprehensive Metabolic Panel] Stat MAG [Magnesium] Stat PT [Prothrombin Time INR] Stat PTT Partial Thromboplastin Bryan Stat Troponin & CK Cardiac Panel Stat 02/03/23 17:58 EKG-12 Lead Routine 02/03/23 18:09 EKG-12 Lead Routine Discontinued Medications Propofol (Propofol 200 Mg/20 Ml Vial) 200 mg IV NOW ONE Stop: 02/03/23 17:24 Reevaluation(s) Reevaluation #1: Laboratory work and imaging reviewed. Patient is still in narrow complex tachycardia. Shared decision making had with the patient, offered rate control or cardioversion with hopeful rhythm control. Patient elected cardioversion. Patient was cardioverted once per procedure note with improvement in heart rate to 70 beats per minute. Monitored until complete recovery from sedation. Repeat EKG sinus rhythm without concerning findings. We will temporarily increase medication dose to 240 mg, patient and has been instructed to call Cardiology 1st thing tomorrow morning for follow up. ED return precautions discussed at bedside. Patient expressed understanding of the plan and is in agreement at this time. All questions answered at the time of discharge. Vital Signs Vital signs: Vital Signs - 8 hr 02/03/23 15:51 02/03/23 15:56 02/03/23 15:57 Temperature 98.3 F Pulse Rate 138 H Respiratory Rate 18 Blood Pressure 104/62 130/86 Pulse Oximetry 100 99 Oxygen Delivery Method Room Air 02/03/23 15:57 02/03/23 16:00 02/03/23 16:15 Temperature Pulse Rate 135 H 133 H 129 H Respiratory Rate 20 26 H Blood Pressure Pulse Oximetry 98 99 99 Oxygen Delivery Method 02/03/23 16:30 02/03/23 16:45 02/03/23 17:00 Temperature Pulse Rate 130 H 130 H 130 H Respiratory Rate 28 H 20 31 H Blood Pressure Pulse Oximetry 99 98 Oxygen Delivery Method 02/03/23 17:15 02/03/23 17:16 02/03/23 17:16 Temperature Pulse Rate 134 H 133 H Respiratory Rate 22 28 H Blood Pressure 117/75 117/75 Pulse Oximetry 99 99 Oxygen Delivery Method 02/03/23 17:30 02/03/23 17:42 02/03/23 17:42 Temperature Pulse Rate 130 H 132 H Respiratory Rate 17 29 H Blood Pressure 116/65 Pulse Oximetry 98 100 Oxygen Delivery Method 02/03/23 17:45 02/03/23 18:20 Temperature Pulse Rate 131 H 78 Respiratory Rate 16 Blood Pressure Pulse Oximetry 98 Oxygen Delivery Method MDM - Arrhythmia/Palpitations Differential Diagnosis Differential diagnosis: Likely palpitations, anxiety and artial fibrillation Lab Data 02/03/23 16:40 02/03/23 16:40 Labs: Lab Results 02/03/23 Range/Units 16:40 WBC 6.7 (4.5-11.0) X10^3/uL RBC 4.34 (4.0-5.2) X10^6/uL Hgb 12.7 (12.0-16.0) g/dL Hct 37.4 (36-46) % MCV 86.4 (80-100) fL MCH 29.3 (26-34) PG MCHC 33.9 (30-36) % RDW 13.1 (11.6-14.8) % Plt Count 272 (150-400) X10^3/uL Neut % (Auto) 52.2 (50-75) % Lymph % (Auto) 35.6 (25-40) % [place] % (Auto) 7.8 (3-14) % Eos % (Auto) 3.5 (2-4) % Baso % (Auto) 0.9 (0-2) % Neut # (Auto) 3500 (9577-6909) /uL Lymph # (Auto) 2400 (0226-8444) /uL [place] # (Auto) 500 (0-900) /uL Eos # (Auto) 200 (0-450) /uL Baso # (Auto) 100 (0-100) /uL PT 14.1 H (10.1-12.7) SECONDS INR 1.2 (0.9-1.3) APTT 42 H (26-36) SECONDS Sodium 137 (137-145) mmol/L Potassium 3.7 (3.4-5.1) mmol/L Chloride 107 (98-107) mmol/L Carbon Dioxide 22 (22-32) mmol/L BUN 19 H (7-17) mg/dL Creatinine 0.69 (0.52-1.04) mg/dL Estimated GFR > 60 (>60) mL/min BUN/Creatinine Ratio 27.5 H (6-22) Glucose 120 H (80-110) mg/dL Calcium 9.5 (8.4-10.2) mg/dL Magnesium 1.9 (1.6-2.3) mg/dL Total Bilirubin 0.5 (0.2-1.3) mg/dL AST 39 H (14-36) IU/L ALT 48 H (<35) IU/L Alkaline Phosphatase 64 (38-126) U/L Total Creatine Kinase 68 (30-135) U/L Troponin I < 0.012 (0.01-0.034) ng/mL Total Protein 6.8 (6.3-8.2) g/dL Albumin 4.1 (3.5-5.0) g/dL Globulin 2.7 (1.7-4.1) g/dL Albumin/Globulin Ratio 1.5 (1.0-2.8) Point of Care Testing Test Results Not applicable ECG Data Interpretation: Atrial fibrillation with rapid ventricular response rate of 133 beats per minute. Normal axis, no ST T wave changes Second EKG: Normal sinus rhythm, rate 78 beats per minute, no ST T wave changes, no STEMI Discharge Plan Departure Patient Disposition: Home Clinical Impression: Atrial fibrillation with RVR Instructions: DI for Atrial Fibrillation, DI for Moderate Sedation Activity Restrictions/Additional Instructions: Follow up as soon as possible with your systems lead. We are increasing your diltiazem dose to 240mg daily. Monitor your blood pressure and if it goes too low then you may decrease your dose back to 180 mg. Prescriptions: New diltiazem HCl 240 mg capsule,extended release 24hr 240 mg PO DAILY Qty: 30 0RF No Action (DME) [employer] Audie 14 Day Sensor Kit See Rx Instructions .ROUTE .MEDSUPPLY Qty: 1 Patient Comments: apply 1 SENSOR to back OF UPPER ARM REMOVE AND REPLACE every 14 d... (REFER TO PRESCRIPTION NOTES). Rx Instructions: As directed multivitamin Tablet 1 tab PO DAILY coenzyme Q10 [Co Q-10] 200 mg capsule 200 mg PO DAILY cetirizine [Aller-Hilda] 10 mg tablet 10 mg PO DAILY PRN Eliquis 5 mg tablet 5 mg PO BID Qty: 180 3RF diltiazem HCl 180 mg capsule,extended release 24 hr 180 mg PO DAILY Qty: 90 3RF losartan 100 mg tablet 100 mg PO DAILY Qty: 90 3RF famotidine 40 mg tablet 40 mg PO BID Qty: 180 3RF fluoxetine 20 mg capsule 40 mg PO DAILY Qty: 180 3RF metformin 500 mg tablet extended release 24 hr 1,000 mg PO QPM Qty: 180 3RF rosuvastatin 40 mg tablet 40 mg PO DAILY Qty: 90 3RF Ozempic 1 mg/dose (4 mg/3 mL) pen injector 1 mg SUBCUT QWEEK Qty: 9 3RF clonidine HCl 0.1 mg tablet 0.1 mg PO BEDTIME Qty: 90 3RF potassium chloride 10 mEq capsule, extended release 10 meq PO DAILY Referrals: Alessandro Sprague MD [Primary Care Provider] - Stand Alone Forms: Patient Portal/API
[2023-02-03 17:11] LABS: Troponin I < 0.012 ng/mL (0.01-0.034)
[2023-02-03] MEDS: propofoL 200 MG/20 ML VIAL IV (17:50)
--- NOTE | 2023-02-03 18:31 | PC.NURSE ---
Pt tolerated cardioversion well and without complication. Delivered one shock @ 150 joules. Pt converted to normal sinus rhythm. pt a&o x4 at this time.
== END 2023-02-03 18:50 | disposition home or self-care (01) ==
PROVIDERS: Emergency Provider Emergency Medicine; PCP Internal Medicine
DX: I48.20 Chronic atrial fibrillation, unspecified (principal); R07.9 Chest pain, unspecified; Z79.01 Long term (current) use of anticoagulants; Z79.899 Other long term (current) drug therapy
CPT/HCPCS: 71045; 80053; 82550; 83735; 84484; 85025; 85610; 85730; 92960; 93005; 99285; 99291; J2704

== ENCOUNTER → 2023-03-31 08:47 | Outpatient (CLI) | payer MEDICARE, SELFPAY ==
--- NOTE | 2023-03-31 08:48 | DI.RAD.S_ITS ---
Bone Density Report Name: LILIANA REEVES Age: 67 Sex: Female Ethnicity: White Date of : 1955 Indication: postmenopausal; screening for osteoporosis; Referring Provider: ELISSA HEARN Study: Bone densitometry was performed. Exam Date: March 31, 2023 Accession number: [id number] Bone Density: Region BMD T-score Z-score Classification AP Spine(L1-L4) 0.990 -0.5 1.3 Normal Femoral Neck (Left) 0.591 -2.3 -0.8 Osteopenia Total Hip (Left) 0.812 -1.1 0.2 Osteopenia Femoral Neck (Right) 0.688 -1.5 0.1 Osteopenia Total Hip (Right) 0.798 -1.2 0.1 Osteopenia Total Hip Mean 0.805 -1.2 0.2 Osteopenia World Health Organization criteria for BMD impression classify patients as: Normal (T-score at or above -1.0), Osteopenia (T-score between -1.0 and -2.5), or Osteoporosis (T-score at or below -2.5). 10-year Fracture Risk(1): Major Osteoporotic Fracture 12% Hip Fracture 2.1% Reported Risk Factors: [place] (), Neck BMD=0.591, BMI=29.2 (1) FRAX(R) Version 3.08. Fracture probability calculated for an untreated patient. Fracture probability may be lower if the patient has received treatment. Impression: The patient has low bone mass, based on the Left Femoral Neck T-score. The patient has an estimated ten-year risk of hip fracture of 2.1% and an estimated ten-year risk of major fracture of 12%, based on the WHO FRAX algorithm. Discussion: BONE DENSITY IS LOW AT ONE OR MORE SKELETAL SITES. This patient's lowest T-score is low at one or more skeletal sites. It meets the World Health Organization's (WHO) criteria for low bone mass (T-score between -1.0 and -2.5). The patient's 10-year risk of fracture as calculated by FRAX is less than the threshold where pharmacological therapy is recommended by the National Osteoporosis Foundation (NOF). However, all treatment decisions require clinical judgment and consideration of individual patient factors, including patient preferences, comorbidities, previous drug use, risk factors not captured in the FRAX model (e.g., frailty, falls, vitamin D deficiency, increased bone turnover, interval significant decline in bone density) and possible under or overestimation of fracture risk by FRAX. The patient should follow a healthful lifestyle (good nutrition with adequate calcium and vitamin D, and appropriate weight-bearing exercise). Follow-Up: Consider repeating this study in 2 to 3 years to reassess this patient's status, or sooner if there is some new clinical indication. Reported by: [facility] AZUCENA MAIER M.D. on 03/31/2023 9:29:00 AM.
[2023-03-31 10:48] LABS: Alanine Aminotransferase 36 IU/L (<35); Albumin 4.1 g/dL (3.5-5.0); Albumin Globulin Ratio 1.7 (1.0-2.8); Alkaline Phosphatase 67 U/L (38-126); Aspartate Aminotransferase 31 IU/L (14-36); BUN Creatinine Ratio 23.7 (6-22); Bilirubin Total 0.7 mg/dL (0.2-1.3); Blood Urea Nitrogen 18 mg/dL (7-17); Calcium 9.6 mg/dL (8.4-10.2); Carbon Dioxide 28 mmol/L (22-32); Chloride 102 mmol/L (98-107); Estimated Glomerular Filt Rate > 60 mL/min (>60); Globulin 2.4 g/dL (1.7-4.1); Glucose 134 mg/dL (80-110); HEMOLYSIS < 15 (0-50); Potassium 4.1 mmol/L (3.4-5.1); Sodium 138 mmol/L (137-145); Total Protein 6.5 g/dL (6.3-8.2)
[2023-03-31 11:20] LABS: Hepatitis B Surface Antigen NEGATIVE s/c (NEGATIVE)
[2023-03-31 11:46] LABS: Hep C Virus Ab w/Reflex Quant NEGATIVE s/c (NEGATIVE)
[2023-04-02 06:40] LABS: Hepatitis B Surf Ab Qualitativ Reactive (.)
== END ==
PROVIDERS: PCP Internal Medicine; Referring Provider Internal Medicine Cardiovascular Disease; Visit Provider Internal Medicine Cardiovascular Disease
DX: M85.89 Other specified disorders of bone density and structure, multiple sites (principal); E11.69 Type 2 diabetes mellitus with other specified complication; E78.5 Hyperlipidemia, unspecified; R94.5 Abnormal results of liver function studies
CPT/HCPCS: 77080; 80053; 83036; 86706; 86803; 87340

== ENCOUNTER → 2023-04-21 09:04 | Outpatient (CLI) | payer OTHER, SELFPAY ==
--- NOTE | 2023-04-21 | DI.ECHO.S_ITS ---
[facility] +---------+ Hospital +---------+ : : [address] : : : : [id number] : : : : Phone: [phone]+ Echocardiogram Report + + :Name: LILIANA REEVES Study Date: 04/21/2023 Height: 64 in : :[facility] ReadingLocation: Weight: 170 lb : : Gender: Female BSA: 1.8 m2 : :: 1955 Age: 68 yrs BP: 143/96 mmHg: :Reason For Study: ATRIAL FIBRILLATION : :Ordering Physician: SYDNEY, : :GARIMA Performed By: Kennedi Harris : :Referring: GARIMA STONE : + + Interpretation Summary 1) Normal left ventricular thickness, size, wall motion, and systolic function (EF 65-70%). 2) Normal right ventricular size and function. 3) No significant valvular abnormalities. 4) Compared to the Echo done 07/15/2016, no significant change. Procedure: A two-dimensional transthoracic echocardiogram with color flow and Doppler was performed. The study quality was technically adequate. Comparison is made with the echocardiogram of 07/15/2016. The patient was in sinus rhythm with heart rates between 63-101 bpm during the exam. Left Ventricle: The left ventricle is normal in size. Left ventricular wall thickness is normal. Proximal septal thickening is noted. The ejection fraction is estimated to be 65-70%. Left ventricular systolic function appears normal without focal wall motion abnormalities. Diastolic function could not be accurately assessed due to contradictory data. Right Ventricle: The right ventricle is normal in size and function. Atria: The left atrial size is normal. Right atrial size is normal. There is no Doppler evidence for an interatrial shunt. Mitral Valve: The mitral valve is normal in structure and function. There is trace mitral regurgitation. Aortic Valve: The aortic valve is trileaflet. The aortic valve opens well. There is no aortic valve stenosis. There is trace aortic regurgitation. Tricuspid Valve: The tricuspid valve is normal in structure and function. There is mild tricuspid regurgitation. Right ventricular systolic pressure is estimated to be 27 mmHg plus the clinically estimated CVP which cannot be estimated on this exam. Pulmonic Valve: The pulmonic valve leaflets are thin and pliable; valve motion is normal. There is trace pulmonic regurgitation. Great Vessels: The aortic root is normal size. The dimensions of the ascending aorta are normal. The inferior vena cava was not well visualized. Pericardium/ Pleura There is no pericardial effusion. There is no pleural effusion. MMode/2D Measurements & Calculations LVIDd: 3.7 cm LVOT diam: 2.0 cm LVIDs: 2.5 cm Ao root diam: 2.8 cm FS: 33.4 % asc Aorta Diam: 3.8 cm IVSd: 1.3 cm Ao Arch Diam (Prox Trans): 3.0 cm LVPWd: 0.88 cm LV hendricks. diameter/BSA (cm/m^2): 2.0 LV sys. diameter/BSA (cm/m^2): 1.4 LA A2 area: 19.1 cm2 RA long axis: 5.0 cm LA A4 area: 14.7 cm2 RA area: 16.4 cm2 LA length (vol): 4.6 cm RA vol: 45.7 ml LA vol: 51.3 ml RA : 25.0 ml/m2 LA vol index: 28.1 ml/m2 RVD1 (basal): 3.4 cm RVD2 (mid): 2.6 cm TAPSE: 2.1 cm Doppler Measurements & Calculations Ao V2 max: 164.8 cm/sec LVOT Max Charles: 94.3 cm/sec Ao V2 mean: 118.8 cm/sec LV V1 max P.6 mmHg Ao max P.9 mmHg LV V1 VTI: 23.5 cm Ao mean P.0 mmHg ELSY(I,D): 1.9 cm2 Ao V2 VTI: 38.0 cm ELSY(V,D): 1.8 cm2 sev ratio: 0.62 ELSY indexed to BSA (cm^2/m^2): 1.0 MV E max charles: 80.7 cm/sec TR max charles: 258.8 cm/sec MV A max charles: 136.6 cm/sec TR max P.8 mmHg MV E/A: 0.59 PA V2 max: 93.6 cm/sec Med Peak E' Charles: 4.9 cm/sec PA V2 mean: 68.0 cm/sec E/E' med: 16.4 PA mean P.0 mmHg Lat Peak E' Charles: 4.4 cm/sec PA pr(Accel): 46.5 mmHg E/E' lat: 18.3 E/e' average: 17.3 MV dec time: 0.30 sec SVLVOT): 72.7 ml Reading Physician:01:31 PM
== END ==
LOC: ECHO 09:06
PROVIDERS: PCP Internal Medicine; Referring Provider Internal Medicine Cardiovascular Disease; Visit Provider Internal Medicine Cardiovascular Disease
DX: I48.19 Other persistent atrial fibrillation (principal); R06.02 Shortness of breath; I07.1 Rheumatic tricuspid insufficiency
CPT/HCPCS: 93306

== ENCOUNTER → 2023-04-26 09:08 | Outpatient (CLI) | payer OTHER, SELFPAY ==
--- NOTE | 2023-04-28 02:26 | DI.NM.S_ITS ---
DATE OF SERVICE: 04/26/2023 PROCEDURE: Pharmacological Perfusion Study INDICATIONS: Shortness of breath, paroxysmal AFib, hypertension. RADIOPHARMACEUTICAL: 24.4 millicurie technetium-99m Myoview IV was injected at stress and 24.7 millicurie technetium-99m Myoview IV was injected at rest. CARDIAC STRESS: Initially, the patient attempted exercise stress test. She walked on Trell protocol for 3 minutes and 31 seconds, achieved 4.6 METS of workload. However, only got 73% of target heart rate. The patient also took diltiazem today. During exercise, normal blood pressure response. Resting blood pressure was 134/82. Baseline rhythm sinus with low-voltage complexes, poor R-wave progression and diffuse nonspecific ST-T changes. During stress, no new convincing ischemic changes or significant arrhythmias. As the patient did not achieve target heart rate, test was converted to pharmacological perfusion study. The patient received IV Lexiscan, as per standard protocol. Also patient could not keep up on treadmill. The patient remained hemodynamically stable during Lexiscan. She had stomach discomfort and chest heaviness with Lexiscan, which resolved within 10 minutes into the recovery. During Lexiscan, no obvious new ischemic changes or new arrhythmias. The patient remained in sinus rhythm. RAW DATA: Breast shadow seen. GATED STUDY: Resting LV ejection fraction 80 and stress LV ejection fraction 95% without any obvious wall motion abnormalities. Resting end- diastolic volume 81 mL. TID ratio 1.0, which is within normal limits. Lung/heart ratio 0.45, which is upper limit of normal. MYOCARDIAL PERFUSION SCAN: Stress supine and resting supine images revealed small size, mildly decreased perfusion of inferior apex which got resolved during stress prone images suggestive of tissue attenuation artifact. No convincing ischemia or infarction. CONCLUSION: I will call this study likely a normal myocardial perfusion study with evidence of tissue attenuation artifact, which got resolved during stress prone images. Overall diminished exercise tolerance. The patient also took diltiazem hence could not achieved target heart rate that is why exercise stress test was converted to pharmacological perfusion study. The patient had exercise perfusion study in July 2016, at that time she had similar perfusion pattern. Overall, low-risk myocardial perfusion scan. Ale Maza - WADE/cipriano/rosangela doc#: [id number]/job#: [id number] dd: 04/27/2023 13:00:00 dt: 04/28/2023 02:16:00 DICTATING MD/COPIES TO: Giovany Weber MD COPIES MNE: SANGEETHA;
== END ==
LOC: NUCM 09:08
PROVIDERS: PCP Internal Medicine; Referring Provider Internal Medicine Cardiovascular Disease; Visit Provider Internal Medicine Cardiovascular Disease
DX: R06.02 Shortness of breath (principal); I48.19 Other persistent atrial fibrillation; I10 Essential (primary) hypertension
CPT/HCPCS: 78452; 93017; A9502; J2785

== ENCOUNTER → 2023-10-05 06:37 | Outpatient (CLI) | payer OTHER, SELFPAY ==
--- NOTE | 2023-10-05 06:38 | DI.MRI.S_ITS ---
PROCEDURE: MR KNEE LT WO CON INDICATIONS: Worsening left knee pain TECHNIQUE: Noncontrast sagittal PD fast spin echo and T2 fast spin echo with fat saturation, sagittal 3-D FLASH with fat saturation; coronal T1 spin echo and PD fast spin echo with fat saturation, and axial PD fast spin echo with fat saturation through the knee. COMPARISON: None. FINDINGS: Image quality: Fair; some sequences are contaminated by motion artifact. Menisci: Superimposed on maceration and truncation, there is a complex tear of the medial meniscus at the posterior body/posterior horn junction that likely extends to the posterior root attachment (01/19; /10). Superimposed on maceration and truncation, there is a complex tear of the lateral meniscus at the posterior horn and body junction (01/23), along with a radial tear at the mid body segment (01/20), and a complex tear at the anterior horn there is 5 mm of meniscal body extrusion into the lateral gutter. The tears likely extend to the posterior root attachment. Cruciate ligaments: Although the fiber orientation is preserved, there is mild intrasubstance signal within the anterior cruciate ligament. The posterior cruciate ligament is preserved. Medial structures: The medial collateral ligament appears intact. The posterior oblique ligament, semimembranosus tendon insertions, oblique popliteal ligament, and meniscocapsular junction appear intact. Visualized portions of the pes anserinus tendons appear normal. No abnormal bursal fluid. Lateral structures: The lateral collateral ligament, long and short heads of the biceps femoris tendon appear intact. The popliteus tendon appears normal; the popliteofibular ligament appears intact. The posterosuperior and anteroinferior popliteomeniscal fascicles appear intact. The arcuate and fabellofibular ligaments appear intact, on either side of the lateral inferior geniculate artery. Iliotibial band appears normal. Anterior structures: The quadriceps and patellar tendons appear intact. There is mild lateral patellar tilt (5/13), which may be positional. No femoral trochlear dysplasia. Bones and cartilage: Mildly heterogenous periarticular bone marrow at the knee joint, a nonspecific finding which can be seen in the setting of obesity, anemia, and smoking among other etiologies. No fracture or dislocation. There are areas of deep and near- full thickness chondral loss in the patellofemoral compartment (5/13) as well as the medial and lateral weight-bearing compartments. Additional full-thickness chondral loss is present at the posterior nonweightbearing femoral condylar surfaces. Joint space: There is a moderate knee joint effusion with synovial proliferation. No significant Espino's cyst. Tricompartmental joint space narrowing, osteophyte formation, and subchondral cyst formation. 1.3 cm intra-articular body along the posterior-medial joint capsule (5/14; 7/3). Other: Mild subcutaneous edema is present around the knee, predominantly around the prepatellar and infrapatellar regions. IMPRESSION: 1. Severe tricompartmental knee osteoarthritis with moderate knee joint effusion, synovitis, and associated articular cartilage defects. 2. Complex tears of the medial and lateral menisci with likely extension to the posterior root attachments. 3. Possible mucoid degeneration of the anterior cruciate ligament. Dictated by: Frantz Jett M.D. on 10/05/2023 at 15:57 Approved by: Frantz Jett M.D. on 10/05/2023 at 16:15
== END ==
LOC: MRI 06:38
PROVIDERS: PCP Nurse Practitioner Family; Referring Provider Nurse Practitioner Family; Visit Provider Nurse Practitioner Family
DX: S83.272A Complex tear of lateral meniscus, current injury, left knee, initial encounter (principal); S83.232A Complex tear of medial meniscus, current injury, left knee, initial encounter; M17.12 Unilateral primary osteoarthritis, left knee; M25.562 Pain in left knee; M25.561 Pain in right knee; M25.462 Effusion, left knee; M65.9 Synovitis and tenosynovitis, unspecified
CPT/HCPCS: 73721

== ENCOUNTER 2023-11-25 20:15 | Emergency (ER) | payer OTHER, SELFPAY ==
[2023-11-25 20:15] VITALS: BP 101/69; PULSE 152; RESP 22; TEMP 36.6; O2SAT 99; BMI 30.1
--- NOTE | 2023-11-25 20:23 | EKG_ITS ---
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
[2023-11-25 20:24] VITALS: PULSE 150; RESP 29; O2SAT 100
[2023-11-25 20:30] VITALS: PULSE 149; RESP 38; O2SAT 99
--- NOTE | 2023-11-25 20:37 | ED.ARRPALP ---
HPI - Arrhythmia/Palpitations General Chief Complaint: Arrhythmia/Palpitations Stated Complaint: A Fib symptoms Time Seen by Provider: 11/25/23 20:20 Source: patient Mode of arrival: Wheelchair History of Present Illness HPI narrative: Patient is a 68-year-old female. History of hypertension and paroxysmal atrial fibrillation. She was on apixaban. She was also on clonidine and diltiazem. She has taken all of her medications as directed. She was here in the emergency department in February of last year for atrial fibrillation. Was cardioverted. She also has flecainide at home that she can take as needed. States 2 weeks ago she had a episode of AFib. She took her flecainide and converted on its own. Several hours ago she noticed that her heart was beating fast and irregular. It felt like an episode of AFib. She did take a dose of her flecainide and when she did not respond to this she came to the emergency department. Denies chest pain or shortness of breath or lightheadedness. Related Data Home Medications Medication Instructions Recorded Confirmed cetirizine 10 mg tablet (Aller-Hilda) 10 mg PO DAILY PRN 10/02/22 04/02/23 coenzyme Q10 200 mg capsule (Co 200 mg PO DAILY 10/02/22 04/02/23 Q-10) multivitamin 1 tab PO DAILY 10/02/22 04/02/23 potassium chloride 10 mEq 10 meq PO DAILY 11/09/22 04/02/23 capsule,extended release Previous Rx's Medication Instructions Recorded apixaban 5 mg tablet (Eliquis) 5 mg PO BID #180 tabs 10/02/22 clonidine HCl 0.1 mg tablet 0.1 mg PO BEDTIME #90 tabs 10/02/22 diltiazem HCl 180 mg capsule,24 180 mg PO DAILY #90 caps 10/02/22 hr,extended release famotidine 40 mg tablet 40 mg PO BID #180 tabs 10/02/22 fluoxetine 20 mg capsule 40 mg (2 x 20 mg) PO DAILY #180 10/02/22 caps losartan 100 mg tablet 100 mg PO DAILY #90 tabs 10/02/22 metformin 500 mg tablet,extended 1,000 mg (2 x 500 mg) PO QPM #180 10/02/22 release 24 hr tabs rosuvastatin 40 mg tablet 40 mg PO DAILY #90 tabs 10/02/22 semaglutide 1 mg/dose (4 mg/3 mL) 1 mg (0.75 mL) SUBCUT QWEEK #9 mL 10/02/22 subcutaneous pen injector (Ozempic) codeine 10 mg-guaifenesin 100 mg/5 10 ml PO Q4-6H PRN cough #118 mL 04/02/23 mL oral liquid peg 3350-sod sulf,adsql-dxb-urs 1,000 ml PO DIRECTED #2,000 mL 06/29/23 178.7-7.3-0.5-1.12-0.9 gram oral soln (Suflave) Allergies Allergy/AdvReac Type Severity Reaction Status Date / Time cefaclor [From [facility]] Allergy Severe hives Verified 04/02/23 11:28 MITCH Inhibitors Allergy Mild cough Verified 04/02/23 11:28 [MITCH INHIBITORS] Penicillins [PENICILLINS] Allergy Mild coughing Verified 04/02/23 11:28 zephrex Allergy Mild coughing Uncoded 04/02/23 11:28 Review of Systems Review of Systems ROS Unobtainable: All systems reviewed & are unremarkable except as noted in HPI and below Patient History Medical History Abnormal liver function History of colonic polyps Allergic rhinitis Insomnia Generalized anxiety disorder Depression, major, recurrent GERD without esophagitis Obstructive sleep apnea Mixed hyperlipidemia Essential hypertension Chronic anticoagulation Paroxysmal atrial fibrillation DM type 2 with diabetic dyslipidemia ADHD Carpal tunnel syndrome Hearing loss Irregular menstrual cycle Infertility Heavy menstrual period Fibroids Surgical History Anesthesia H/O gastric sleeve History of Achilles tendon repair History of mandibular surgery Family History Father Diabetes mellitus Hypertension Sister Diabetes mellitus Social History details: , 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, retired C[employer] Smoking Status: Never smoker Smoking Status: Never smoker alcohol intake frequency: 0-2 drinks per day Substance Use Type: does not use Exam Initial Vital Signs Initial Vital Signs: Vital Signs Temperature 98 F 11/25/23 20:15 Pulse Rate 152 H 11/25/23 20:15 Respiratory Rate 22 11/25/23 20:15 Blood Pressure 101/69 11/25/23 20:15 Pulse Oximetry 99 11/25/23 20:15 Oxygen Delivery Method Room Air 11/25/23 20:15 Const General: cooperative, comfortable and No ill appearing HENNY Head: normal to inspection and normocephalic Resp Effort & Inspection: normal respiratory effort Auscultation: clear to auscultation bilaterally Cardio Rate: tachycardic Rhythm: regular rhythm GI Inspection: normal to inspection Skin General: no rashes or lesions noted Neuro General: patient alert, patient awake, patient oriented x3 and moves all extremities Extrem General: No edema Course Orders Ordered: ED Orders 11/25/23 20:20 EKG-12 Lead Stat 11/25/23 20:45 Complete Blood Count AUTO DIFF Stat Comprehensive Metabolic Panel Stat Lipase Stat Magnesium Stat Troponin & CK Cardiac Panel Stat 11/25/23 21:00 EKG-12 Lead Stat Sodium Chloride (Normal Saline 0.9%) 1,000 mls @ 125 mls/hr IV CONT NORA Last Admin: 11/25/23 20:47 Dose: 125 mls/hr Documented By: MADISON Discontinued Medications Fentanyl (Fentanyl 100 Mcg/2 Ml Inj) 12.5 mcg IV NOW ONE Stop: 11/25/23 20:26 Amiodarone HCl/Dextrose (Nexterone) 150 mg in 100 mls @ 600 mls/hr IV NOW ONE; Protocol Stop: 11/25/23 20:34 Last Infusion: 11/25/23 21:00 Dose: Infused Documented By: Admin: 11/25/23 20:51 Dose: 600 mls/hr Documented By: MADISON Propofol (Propofol 200 Mg/20 Ml Vial) 100 mg IV NOW ONE Stop: 11/25/23 20:26 Vital Signs Vital signs: Vital Signs - 8 hr 11/25/23 20:15 Temperature 98 F Pulse Rate 152 H Respiratory Rate 22 Blood Pressure 101/69 Pulse Oximetry 99 Oxygen Delivery Method Room Air MDM - Arrhythmia/Palpitations Lab Data Attestation: I reviewed the patient's lab results. 11/25/23 20:45 11/25/23 20:45 Labs: Lab Results 11/25/23 Range/Units 20:45 WBC 11.9 H (4.5-11.0) X10^3/uL RBC 4.48 (4.0-5.2) X10^6/uL Hgb 13.3 (12.0-16.0) g/dL Hct 40.3 (36-46) % MCV 90.0 (80-100) fL MCH 29.6 (26-34) PG MCHC 32.9 (30-36) % RDW 14.2 (11.6-14.8) % Plt Count 308 (150-400) X10^3/uL Neut % (Auto) 70.5 (50-75) % Lymph % (Auto) 21.5 L (25-40) % Dickey % (Auto) 6.2 (3-14) % Eos % (Auto) 1.2 L (2-4) % Baso % (Auto) 0.6 (0-2) % Neut # (Auto) 8400 H (2873-2983) /uL Lymph # (Auto) 2600 (0197-2866) /uL Dickey # (Auto) 700 (0-900) /uL Eos # (Auto) 100 (0-450) /uL Baso # (Auto) 100 (0-100) /uL Sodium 133 L (137-145) mmol/L Potassium 3.6 (3.4-5.1) mmol/L Chloride 103 (98-107) mmol/L Carbon Dioxide 14 L (22-32) mmol/L BUN 23 H (7-17) mg/dL Creatinine 1.07 H (0.52-1.04) mg/dL Estimated GFR 57 L (>60) mL/min BUN/Creatinine Ratio 21.5 (6-22) Glucose 235 H (80-110) mg/dL Calcium 9.4 (8.4-10.2) mg/dL Magnesium 1.7 (1.6-2.3) mg/dL Total Bilirubin 0.7 (0.2-1.3) mg/dL AST 49 H (14-36) IU/L ALT 35 H (<35) IU/L Alkaline Phosphatase 84 (38-126) U/L Total Creatine Kinase 52 (30-135) U/L Troponin I < 0.012 (0.01-0.034) ng/mL Total Protein 6.8 (6.3-8.2) g/dL Albumin 4.2 (3.5-5.0) g/dL Globulin 2.6 (1.7-4.1) g/dL Albumin/Globulin Ratio 1.6 (1.0-2.8) Lipase 233 (23-300) U/L ECG Data Attestation: I personally reviewed and interpreted this ECG as follows: Interpretation: Presentation EKG Supraventricular tachycardia Ventricular rate 152 Appears to be atrial flutter Left axis deviation Nonspecific ST T wave changes Repeat EKG Sinus rhythm Ventricular rate of 83 Left axis deviation Normal QRS No ST T wave changes MDM Narrative Medical decision making narrative: Upon arrival patient was tachycardic and regular and appears to be atrial flutter. We discussed risks and benefits of rate control versus rhythm control. She has had cardioversion in the past. She was on anticoagulation. She was a candidate for cardioversion. Patient agreed to cardioversion. Consent was signed. In preparation she was given 150 mg of amiodarone. Patient converted to sinus rhythm without a sedation or cardioversion. Electrolytes are unremarkable. Troponin is negative. Patient's symptoms are now completely resolved. Will discharge patient home with instructions to contact her primary doctor and also her photography colorist for follow-up. She was given return precautions. She expressed understanding and agreement with plan. Discharge Plan Departure Patient Disposition: Home Clinical Impression: Atrial fibrillation Instructions: DI for Atrial Fibrillation Activity Restrictions/Additional Instructions: I recommend that you continue to take all of your medications as directed. I also recommend that you contact your primary care doctor and also your photography colorist for a follow-up. Return to the emergency department for new or worsening symptoms. Prescriptions: No Action codeine-guaifenesin 10-100 mg/5 mL liquid 10 ml PO Q4-6H PRN (Reason: cough) Qty: 118 0RF Suflave 178.7-7.3-0.5 gram recon soln 1,000 ml PO DIRECTED Qty: 2000 0RF Rx Instructions: take as directed by Physician multivitamin Tablet 1 tab PO DAILY coenzyme Q10 [Co Q-10] 200 mg capsule 200 mg PO DAILY cetirizine [Aller-Hilda] 10 mg tablet 10 mg PO DAILY PRN Eliquis 5 mg tablet 5 mg PO BID Qty: 180 3RF diltiazem HCl 180 mg capsule,extended release 24 hr 180 mg PO DAILY Qty: 90 3RF losartan 100 mg tablet 100 mg PO DAILY Qty: 90 3RF famotidine 40 mg tablet 40 mg PO BID Qty: 180 3RF fluoxetine 20 mg capsule 40 mg PO DAILY Qty: 180 3RF metformin 500 mg tablet extended release 24 hr 1,000 mg PO QPM Qty: 180 3RF rosuvastatin 40 mg tablet 40 mg PO DAILY Qty: 90 3RF Ozempic 1 mg/dose (4 mg/3 mL) pen injector 1 mg SUBCUT QWEEK Qty: 9 3RF clonidine HCl 0.1 mg tablet 0.1 mg PO BEDTIME Qty: 90 3RF potassium chloride 10 mEq capsule, extended release 10 meq PO DAILY Referrals: Vanna Benavides ARNP [Primary Care Provider] - Stand Alone Forms: Patient Portal/API
[2023-11-25 20:46] VITALS: BP 92/55; PULSE 146; RESP 31; O2SAT 99
[2023-11-25] MEDS: SODIUM CHLORIDE 0.9% 1,000 ML 125 ML IV (20:47)
[2023-11-25] MEDS: AMIODARONE 150 MG/100 ML PIGGYBACK 600 MG IV (20:51)
[2023-11-25 21:00] VITALS: BP 106/64; PULSE 82; RESP 29; O2SAT 100
[2023-11-25 21:02] LABS: Add Manual Diff / Slide Review NO; Basophils Absolute Auto 100 /uL (0-100); Basophils Percent Auto 0.6 % (0-2); Eosinophils Absolute Auto 100 /uL (0-450); Eosinophils Percent Auto 1.2 % (2-4); Hematocrit 40.3 % (36-46); Hemoglobin 13.3 g/dL (12.0-16.0); Lymphocytes Absolute Auto 2600 /uL (1100-4500); Lymphocytes Percent Auto 21.5 % (25-40); Mean Corpuscular HGB Conc 32.9 % (30-36); Mean Corpuscular Hemoglobin 29.6 PG (26-34); Monocytes Absolute Auto 700 /uL (0-900); Monocytes Percent Auto 6.2 % (3-14); Neutrophils Absolute Auto 8400 /uL (1500-7000); Neutrophils Percent Auto 70.5 % (50-75); Platelet Count 308 X10^3/uL (150-400); Red Blood Cell Count 4.48 X10^6/uL (4.0-5.2); Red Cell Distribution Width 14.2 % (11.6-14.8); White Blood Cell Count 11.9 X10^3/uL (4.5-11.0)
--- NOTE | 2023-11-25 21:05 | EKG_ITS ---
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
[2023-11-25 21:06] LABS: Alanine Aminotransferase 35 IU/L (<35); Albumin 4.2 g/dL (3.5-5.0); Albumin Globulin Ratio 1.6 (1.0-2.8); Alkaline Phosphatase 84 U/L (38-126); Aspartate Aminotransferase 49 IU/L (14-36); BUN Creatinine Ratio 21.5 (6-22); Bilirubin Total 0.7 mg/dL (0.2-1.3); Blood Urea Nitrogen 23 mg/dL (7-17); Calcium 9.4 mg/dL (8.4-10.2); Carbon Dioxide 14 mmol/L (22-32); Chloride 103 mmol/L (98-107); Creatine Kinase 52 U/L (30-135); Estimated Glomerular Filt Rate 57 mL/min (>60); Globulin 2.6 g/dL (1.7-4.1); Glucose 235 mg/dL (80-110); HEMOLYSIS 16 (0-50); Lipase 233 U/L (23-300); Magnesium 1.7 mg/dL (1.6-2.3); Potassium 3.6 mmol/L (3.4-5.1); Sodium 133 mmol/L (137-145); Total Protein 6.8 g/dL (6.3-8.2)
[2023-11-25 21:17] LABS: Troponin I < 0.012 ng/mL (0.01-0.034)
[2023-11-25 21:30] VITALS: PULSE 86; RESP 35
== END 2023-11-25 21:45 | disposition home or self-care (01) ==
PROVIDERS: Emergency Provider Emergency Medicine; PCP Nurse Practitioner Family
DX: I48.91 Unspecified atrial fibrillation (principal); R00.0 Tachycardia, unspecified; Z79.01 Long term (current) use of anticoagulants
CPT/HCPCS: 36415; 80053; 82550; 83690; 83735; 84484; 85025; 93005; 96361; 96374; 99284; J0282

== ENCOUNTER → 2024-04-19 07:48 | Outpatient (CLI) | payer MEDICARE, OTHER, SELFPAY ==
--- NOTE | 2024-04-19 07:51 | DI.MRI.S_ITS ---
PROCEDURE: MR LUMBAR SPINE WO CON INDICATIONS: Abnormal gait TECHNIQUE: Noncontrast sagittal T1 spin echo and T2 fast echo, sagittal STIR, and T2 fast spin echo through the lumbar spine. In cases with scoliosis, additional coronal T2 fast spin echo may be performed. COMPARISON: None. FINDINGS: Image quality: Excellent. Alignment and Curvature: There is normal bony alignment. Bone Marrow: Marrow is of normal overall signal. No acute vertebral body compression fractures. Spinal Cord: Conus medullaris terminates at the L2 level. Visualized cord demonstrates normal signal and size. Paraspinous Soft Tissues: No paravertebral masses. T12-L1: Normal appearance. L1-L2: Small central/right central disc extrusion. Extruded disc material extends inferiorly along posterior margin of the L2 vertebral body. Mild narrowing of the central canal. No neural foraminal narrowing. No neural compression. L2-L3: Normal appearance. L3-L4: Slight loss of disc signal. Mild, diffuse disc bulge Mild bilateral facet hypertrophy. No central stenosis. No neural foraminal narrowing. No neural compression. L4-L5: Loss of disc signal. Mild, diffuse disc bulge. Moderate bilateral facet hypertrophy. Mild ligamentum flavum hypertrophy. Moderate narrowing of the central canal. Mild bilateral neural foraminal narrowing. No neural compression. L5-S1: Loss of disc signal. Mild, diffuse disc bulge. Small central/left central disc protrusion. Disc protrusion abuts and slightly compresses the traversing left S1 nerve root. Mild to moderate bilateral facet hypertrophy. Moderate narrowing of the central canal. No neural foraminal narrowing. Fissures in the posterior annulus. IMPRESSION: Multilevel degenerative disc disease. Multilevel facet arthropathy. Small central/right central L1-L2 disc extrusion. Small central/left central L5-S1 disc protrusion. Disc protrusion abuts and slightly compresses the traversing left S1 nerve root. Please correlate with clinical data. No severe central canal stenosis. No severe neural foraminal stenosis. L5-S1 disc annulus fissures. Dictated by: Britney Willis MD, PhD on 04/19/2024 at 10:31 Approved by: Britney Willis MD, PhD on 04/19/2024 at 10:37
== END ==
PROVIDERS: PCP Nurse Practitioner Family; Referring Provider Nurse Practitioner Family; Visit Provider Nurse Practitioner Family
DX: M51.360 Other intervertebral disc degeneration, lumbar region with discogenic back pain only; M51.370 Other intervertebral disc degeneration, lumbosacral region with discogenic back pain only; R26.9 Unspecified abnormalities of gait and mobility; M47.816 Spondylosis without myelopathy or radiculopathy, lumbar region; M47.817 Spondylosis without myelopathy or radiculopathy, lumbosacral region; M51.26 Other intervertebral disc displacement, lumbar region; M51.27 Other intervertebral disc displacement, lumbosacral region
CPT/HCPCS: 72148